=== PATIENT | male | born 2000 | race African-American/Black ===

== ENCOUNTER 2021-04-12 21:05 | Emergency (ER) | payer OTHER ==
[~2021-04-12] VITALS: Ht 195.6 cm; Wt 104.5 kg
[2021-04-12 21:47] VITALS: BP 139/73
== END 2021-04-12 22:17 | disposition home or self-care (01) ==
LOC: EMS 21:09
DX: R05.9 Cough, unspecified (principal); Z20.822 Contact with and (suspected) exposure to COVID-19
CPT/HCPCS: 99283; U0003